=== PATIENT | male | born 2000 | race Caucasian/White ===

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

== ENCOUNTER 2018-12-22 09:31 | Emergency (ER) | payer SELFPAY ==
[2018-12-22 10:56] VITALS: BP 132/77
--- NOTE | 2018-12-22 11:33 | ED ---
Throat Pain/Nasal Congestion - HPI Summary HPI Summary: 18 yr old with badly decayed upper right teeth for years, and now presents here with pain to the teeth and right side facial swelling at the right nasolabial fold. No fever or chills. He was supposed to have his teeth taken care of a couple years ago, but he States [facility] wouldn't do it due to his allergy to Lidocaine. Pain is moderate. No other complaints. - History of Current Complaint Chief Complaint: UCDentalProblem Time Seen by Provider: 12/22/18 11:12 - Allergies/Home Medications Allergies/Adverse Reactions: Allergies Allergy/AdvReac Type Severity Reaction Status Date / Time aloe vera Allergy See Comment Verified 12/22/18 10:49 ketamine Allergy Hallucinati Verified 12/22/18 10:49 ons lidocaine Allergy See Comment Verified 12/22/18 10:51 ibuprofen Allergy Hives Uncoded 12/22/18 10:49 Home Medications: Home Medications Acetaminophen [Tylenol Extra Strength] 1,000 mg PO ONCE 12/22/18 [History Confirmed 12/22/18] PMH/Surg Hx/FS Hx/Imm Hx Endocrine/Hematology History: Denies: Hx Diabetes Cardiovascular History: Reports: Hx Hypertension Denies: Hx Pacemaker/ICD Respiratory History: Reports: Hx Asthma Sensory History: Denies: Hx Hearing Aid Psychiatric History: Denies: Hx Panic Disorder - Surgical History Surgery Procedure, Year, and Place: T&A Infectious Disease History: No Infectious Disease History: Denies: Hx Clostridium Difficile, Hx Hepatitis, Hx Human Immunodeficiency Virus (HIV), Hx of Known/Suspected MRSA, Hx Shingles, Hx Tuberculosis, Hx Known/ Suspected VRE, Hx Known/Suspected VRSA, History Other Infectious Disease, Traveled Outside the in Last 30 Days - Family History Known Family History: Positive: Cardiac Disease, Diabetes Negative: Hypertension - Social History Alcohol Use: Occasionally Substance Use Type: Reports: None Smoking Status (MU): Heavy Every Day Tobacco Smoker Type: Cigarettes Amount Used/How Often: 1/2 PPD Length of Time of Smoking/Using Tobacco: 4-5 YRS Review of Systems Constitutional: Negative Positive: Dental Pain All Other Systems Reviewed And Are Negative: Yes Physical Exam Triage Information Reviewed: Yes Vital Signs On Initial Exam: Initial Vitals Temp Pulse Resp BP Pulse Ox 98.9 F 89 16 132/77 100 12/22/18 10:51 12/22/18 10:51 12/22/18 10:51 12/22/18 10:51 12/22/18 10:51 Vital Signs Reviewed: Yes Appearance: Positive: Well-Appearing, No Pain Distress Skin: Positive: Warm, Skin Color Reflects Adequate Perfusion Head/Face: Positive: Normal Head/Face Inspection Eyes: Positive: EOMI, JEFF ENT: Positive: Other - mild blunting of right nasolabial fold with mild tenderness. No facial redness. Dental: Positive: Gross Decay/Caries @ - teeth 5/6 are badly decayed down to the gum line. No gingival swelling. Neck: Positive: Nontender Respiratory/Lung Sounds: Positive: Clear to Auscultation, Breath Sounds Present Cardiovascular: Positive: RRR. Negative: Murmur Abdomen Description: Negative: Distended Musculoskeletal: Positive: Strength/ROM Intact Neurological: Positive: Sensory/Motor Intact, Alert, Oriented to Person Place, Time, CN Intact II-III, Normal Gait, Speech Normal Psychiatric: Positive: Normal - Felecia Coma Scale Best Eye Response: 4 - Spontaneous Best Motor Response: 6 - Obeys Commands Best Verbal Response: 5 - Oriented Coma Scale Total: 15 Diagnostics - Vital Signs Vital Signs Temp Pulse Resp BP Pulse Ox 12/22/18 10:51 98.9 F 89 16 132/77 100 - Laboratory Lab Statement: Any lab studies that have been ordered have been reviewed, and results considered in the medical decision making process. EENT Course/Dx - Diagnoses Provider Diagnoses: Infected dental caries Discharge ED - Sign-Out/Discharge Documenting (check all that apply): Patient Departure All imaging exams completed and their final reports reviewed: No Studies - Discharge Plan Condition: Good Disposition: HOME Prescriptions: Amoxicillin/Clavulanate TAB* [Augmentin TAB 875*] 875 mg PO BID #20 tab Patient Education Materials: Toothache (ED), Dental Abscess (ED) Referrals: No Primary Care Phys,NOPCP [Primary Care Provider] - Additional Instructions: [facility] Map & directions [address]. [id number] [place] [address] CALL TODAY FOR AN APPOINTMENT SOON POSSIBLE - Billing Disposition and Condition Condition: GOOD Disposition: Home
== END 2018-12-22 11:26 | disposition home or self-care (01) ==
LOC: UCCORT 09:31
DX: K02.9 Dental caries, unspecified (principal); K04.7 Periapical abscess without sinus; I10 Essential (primary) hypertension; J45.909 Unspecified asthma, uncomplicated; F17.210 Nicotine dependence, cigarettes, uncomplicated; Z91.09 Other allergy status, other than to drugs and biological substances; Z88.8 Allergy status to other drugs, medicaments and biological substances; Z88.7 Allergy status to serum and vaccine
CPT/HCPCS: 99212; G0463

== ENCOUNTER 2019-01-17 15:47 | Emergency (ER) | payer SELFPAY ==
[2019-01-17 17:47] VITALS: BP 118/95
--- NOTE | 2019-01-17 17:59 | UC ---
Dental HPI - HPI Summary HPI Summary: 19-year-old male who has had a right sided lower toothache for the past 2 days however has right lower jaw swelling today. He had similar symptoms within the past month and was given an antibiotic course of Augmentin however he only took 6 days worth. He restarted that yesterday. He has no insurance presently and states he is unable to get into a dentist. He has no primary care provider. - History of Current Complaint Chief Complaint: UCDentalProblem Stated Complaint: DENTAL COMPLAINT Time Seen by Provider: 01/17/19 17:44 Hx Obtained From: Patient Onset/Duration: Gradual Onset Severity: Moderate Pain Intensity: 1 Aggravating Factor(s): Chewing Alleviating Factor(s): Nothing - Allergies/Home Medications Allergies/Adverse Reactions: Allergies Allergy/AdvReac Type Severity Reaction Status Date / Time aloe vera Allergy See Comment Verified 01/17/19 17:37 ketamine Allergy Hallucinati Verified 01/17/19 17:37 ons lidocaine Allergy See Comment Verified 01/17/19 17:37 ibuprofen Allergy Hives Uncoded 01/17/19 17:37 Home Medications: Home Medications Amoxicillin/Clavulanate TAB* [Augmentin TAB 875*] 1 tab BID 01/17/19 [History Confirmed 01/17/19] PMH/Surg Hx/FS Hx/Imm Hx Previously Healthy: Yes - Surgical History Surgical History: Yes Surgery Procedure, Year, and Place: T&A - Family History Known Family History: Positive: Cardiac Disease, Diabetes Negative: Hypertension - Social History Alcohol Use: Occasionally Substance Use Type: None Smoking Status (MU): Heavy Every Day Tobacco Smoker Type: Cigarettes Amount Used/How Often: 1/2 PPD Length of Time of Smoking/Using Tobacco: 4-5 YRS Household Exposure Type: Cigarettes - Immunization History Vaccination Up to Date: Yes Review of Systems All Other Systems Reviewed And Are Negative: Yes Constitutional: Positive: Fever - Mild fever here however has not noted one at home. ENT: Positive: Dental Pain - Patient has 2 broken molars right lower jaw with swelling of his right lower jaw Is Patient Immunocompromised?: No Physical Exam Triage Information Reviewed: Yes Appearance: Well-Appearing, No Pain Distress, Well-Nourished Vital Signs: Initial Vital Signs Temp 100.3 F 01/17/19 17:40 Pulse 104 01/17/19 17:40 Resp 16 01/17/19 17:40 BP 118/95 01/17/19 17:40 Pulse Ox 100 01/17/19 17:40 Vital Signs Reviewed: Yes Eyes: Positive: Conjunctiva Clear ENT: Positive: Pharynx normal, TMs normal, Uvula midline Dental: Positive: Dental Fracture @ - Broken teeth molars #29 and 30., Other: - No abscess formation noted. The gumline below the broken teeth is erythematous and swollen. Neck: Positive: Supple, Nontender, No Lymphadenopathy Respiratory: Positive: Lungs clear, Normal breath sounds, No respiratory distress, No accessory muscle use Cardiovascular: Positive: RRR, No Murmur, Pulses Normal, Brisk Capillary Refill Musculoskeletal Exam: Normal Neurological Exam: Normal Psychological Exam: Normal Skin: Positive: Other - Right lower jaw swelling with mild tenderness on palpation. Dental Complaint Course/Dx - Course Course Of Treatment: The patient is comfortable here. I'm going to start him on clindamycin 300 mg 3 times a day 10 days. He is to call a dentist tomorrow and make an appointment to be seen. He may take Tylenol for pain. He can apply cool compresses to the area. I also gave him a pamphlet on physician referral service. If he has any increased facial swelling, fever or chills, unable keep the medicine down he is to go to the emergency room for further treatment. - Differential Dx/Diagnosis Provider Diagnosis: Toothache, Left facial swelling Discharge ED - Sign-Out/Discharge Documenting (check all that apply): Patient Departure All imaging exams completed and their final reports reviewed: No Studies - Discharge Plan Condition: Fair Disposition: HOME Prescriptions: Clindamycin Cap(NF) [Clindamycin Cap 300 mg Cap(NF)] 300 mg PO TID 10 Days #30 cap Patient Education Materials: Dental Abscess (ED) Forms: *Work Release Referrals: No Primary Care Phys,NOPCP [Primary Care Provider] - Additional Instructions: Apply cool compresses to the swollen area. Take the medication with food for the full 10 days 3 times a day. Definite follow-up with the dentist in the next day or 2 for further care. If you have any worsening symptoms, fever, chills or you're unable keep the medication down or increased facial swelling your to go to the emergency room immediately. - Billing Disposition and Condition Condition: FAIR Disposition: Home - Attestation Statements Provider Attestation: This patient was not seen by me. I was available for consult. Chart reviewed. KATIE
== END 2019-01-17 18:10 | disposition home or self-care (01) ==
LOC: UCCORT 15:47
DX: K08.89 Other specified disorders of teeth and supporting structures (principal); R22.0 Localized swelling, mass and lump, head; F17.210 Nicotine dependence, cigarettes, uncomplicated; Z91.09 Other allergy status, other than to drugs and biological substances; Z88.4 Allergy status to anesthetic agent; Z88.8 Allergy status to other drugs, medicaments and biological substances
CPT/HCPCS: 99212; G0463